=== PATIENT | female | born 1930 | race Hispanic/Latino ===

== ENCOUNTER 2016-12-06 10:29 | Outpatient (CLI) | payer MEDICARE ==
--- NOTE | 2016-12-06 12:21 | XRay Report ---
RIGHT SHOULDER RADIOGRAPHS INDICATION: Right anterior shoulder pain. COMPARISON: None similar. FINDINGS: Frontal and Y views of the right shoulder, 3 projections demonstrate normal humeral head contour, well positioned against the glenoid. Normal acromioclavicular joint. Preserved scapular contour. Normal visualized soft tissues, right ribs and lung. Demineralized bones. CONCLUSION: No acute right shoulder radiographic abnormality, as described. Thank you for the opportunity to participate in this patient's care.
== END 2016-12-06 10:30 | disposition home or self-care (01) ==
LOC: SPVIMAG 10:29
PROVIDERS: ATTEND Internal Medicine
DX: M25.511 Pain in right shoulder (principal)